=== PATIENT | male | born 1940 | race Caucasian/White ===

== ENCOUNTER → 2016-09-27 | Outpatient (CLI) | payer OTHER, MEDICARE ==
--- NOTE | 2016-09-27 18:13 | DX ---
Cervical Spine (5 Views) Clinical Indications: Neck pain in a 76-year-old male with symptoms more severe on the right side. N o previous cervical spine studies are available for comparison. Findings: There is a grade 1 anterolisthesis of C4 with respect to C5 estimated at 4 mm. Otherwise, b one alignment is normal. Multilevel degenerative changes are seen with disk space loss and facet and uncovertebral arthropathy extending from C2-C3 to the C7-T1 level. There is bilateral neural foramina l impingement extending from C4-C5 to C6-C7 with findings most severe in the right at C4-C5. Impression: 1. Multilevel degenerative changes as detailed above with findings most pronounced at 39 and C5 with rather prominent right-sided neural foraminal impingement noted. 2. Grade 1 spondylolisthesis at the C4-C5 level.
== END ==
LOC: FIMAGING 17:02
PROVIDERS: ATTEND Internal Medicine
DX: M50.821 Other cervical disc disorders at C4-C5 level (principal); M43.12 Spondylolisthesis, cervical region

== ENCOUNTER → 2018-07-04 | Outpatient (CLI) | payer OTHER, MEDICARE | LOC: FIMAGING 15:07 | PROVIDERS: ATTEND Internal Medicine | DX: M50.31 Other cervical disc degeneration, high cervical region (principal); M48.02 Spinal stenosis, cervical region ==